=== PATIENT | female | born 1965 | race Caucasian/White ===

== ENCOUNTER 2022-09-26 12:37 | Outpatient (CLI) | payer BC ==
[~2022-09-26 12:37] MED LIST: Iopamidol 300 61% 100 ML VIAL FS ONE
== END 2022-09-26 12:38 | disposition home or self-care (01) ==
LOC: CSHCT 12:37
PROVIDERS: ATTEND Family Medicine
DX: R51.9 Headache, unspecified (principal)
CPT/HCPCS: 70496; 70544

== ENCOUNTER 2024-05-01 13:04 | Outpatient (CLI) | payer BC | END 2024-05-01 13:05 | disposition home or self-care (01) | LOC: CSHMAMMO 13:04 | PROVIDERS: ATTEND Internal Medicine Hematology & Oncology | DX: M85.88 Other specified disorders of bone density and structure, other site (principal); C50.811 Malignant neoplasm of overlapping sites of right female breast | CPT/HCPCS: 77080 ==

== ENCOUNTER 2025-03-24 13:18 | Outpatient (CLI) | payer BC | END 2025-03-24 13:19 | disposition home or self-care (01) | LOC: CSHMAMMO 13:18 | PROVIDERS: ATTEND Student in an Organized Health Care Education/Training Program | DX: Z08 Encounter for follow-up examination after completed treatment for malignant neoplasm (principal); Z85.3 Personal history of malignant neoplasm of breast; Z98.890 Other specified postprocedural states | CPT/HCPCS: 77066; G0279 ==